=== PATIENT | female | born 1975 | race Two or more races ===

== ENCOUNTER 2019-07-09 22:23 | Emergency (ER) | payer OTHER, MEDICAID ==
[~2019-07-09] VITALS: Ht 162.6 cm; Wt 54.9 kg
--- NOTE | 2019-07-09 22:40 | NUR ---
TRISHA REPORTE A FOCAL SEIZURE EPISODE AT HOME. PT W/ HX OF RECURRENT SEIZURE EPISODE AND HAS A VNS PLACEMENT ON AND [facility]. CURRENTLY W/ L NECK SX SCAR WITH GLUE. PT VERY DROWSY BUT REPONSIVE TO VOICE. PLACED ON A MONITOR
[2019-07-09] MEDS ORDERED: LORAZEPAM INJ 2 MG/ML VIAL ONE (22:50)
[2019-07-09] MEDS ORDERED: ONDANSETRON HCL/PF 4 MG/2 ML VIAL ONE (22:51)
[2019-07-09] MEDS ORDERED: LORAZEPAM INJ 2 MG/ML VIAL IVP ONE (23:00)
[2019-07-09] MEDS ORDERED: IV NS 0.9% 1,000 ML BAG IV ONE (23:00)
[2019-07-09 23:01] LABS: BASOPHILS % (AUTO) 0.6 % (0.0-2.0); EOSINOPHILS % (AUTO) 0.8 % (0.0-6.0); HEMATOCRIT 35 % (33-45); HEMOGLOBIN 11.7 g/dL (11.5-14.8); LYMPHOCYTES % (AUTO) 41.6 % (20.0-44.0); MEAN CORPUSCULAR HGB CONC 33 g/dl (31.0-36.0); MEAN CORPUSCULAR VOLUME 92 fL (82-100); MONOCYTES # (AUTO) 0.5 /CMM (0.1-1.30); MONOCYTES % (AUTO) 9.8 % (2.0-12.0); NEUTROPHILS # (AUTO) 2.3 /CMM (1.8-8.9); NEUTROPHILS % (AUTO) 47.2 % (43.0-81.0); PLATELET COUNT (AUTO) 141 /CMM (150-450); RED BLOOD CELL COUNT(AUTO) 3.81 MIL/uL (4.0-5.2); WHITE BLOOD COUNT (AUTO) 4.8 K/uL (4.3-11.0)
--- NOTE | 2019-07-09 23:05 | NUR ---
PT CAME IN W/ LAC 18 PIV. END TIME FOR NS: [id number]
[2019-07-09 23:38] LABS: VALPROIC ACID 70 ug/mL (50-100)
[2019-07-09 23:40] LABS: PHENYTOIN (DILANTIN) < 0.5 ug/ml (10.0-20.0)
--- NOTE | 2019-07-10 00:02 | NUR ---
PT REFUSED STRAIGHT CATH FOR URINE COLLECTION. PROVIDED W/ A BED RAGLAND. SONS AT THE BED SIDE. WILL F/U
--- NOTE | 2019-07-10 01:04 | NUR ---
PT AND THE SON AT THE BED SIDE REFUSED STRAIGHT CATH FOR URINE COLLECTION AGAIN. MADE AWARE,
--- NOTE | 2019-07-10 03:25 | NUR ---
AT THE BED SIDE
[2019-07-10 03:46] LABS: CALCIUM, SERUM 8.1 mg/dL (8.5-10.1); CARBON DIOXIDE 23 mmol/L (21-32); CHLORIDE 105 mmol/L (98-107); CREATININE 1.1 mg/dL (0.6-1.3); GLUCOSE 166 mg/dL (74-106); POTASSIUM 3.6 mmol/L (3.5-5.1); SODIUM SERUM 141 mmol/L (136-145); UREA NITROGEN, BLOOD 19 mg/dL (7-18)
[2019-07-10 03:51] LABS: ALANINE AMINOTRANSFERASE 16 U/L (12-78); ALBUMIN 3.3 g/dL (3.4-5.0); ALKALINE PHOSPHATASE 72 U/L (46-116); ASPARTATE AMINOTRANSFERASE 9 U/L (15-37); BILIRUBIN,DIRECT 0.1 mg/dL (0.0-0.2); BILIRUBIN,TOTAL 0.2 mg/dL (0.2-1.0); TOTAL PROTEIN, SERUM 6.9 g/dL (6.4-8.2)
--- NOTE | 2019-07-10 04:15 | NUR ---
Patient is resting comfortably in bed with eyes closed. Easily aroused. VSS. son at the bed side.
--- NOTE | 2019-07-10 05:22 | NUR ---
dr. abrams on the phone w/ dr. heller
--- NOTE | 2019-07-10 05:35 | NUR ---
DR OLMSTEAD REQUESTING PATIENT BE TRANSFERRED TO [facility]. AIR SUPPORT CONTROL OFFICER CALLED AND REQUESTED TRANFER. AIR SUPPORT CONTROL OFFICER MAY STATING THAT TRANSFER WILL TAKE SOME TIME. MD MONTOYA
[2019-07-10] MEDS ORDERED: IV NS 0.9% 500 ML BAG IV ONE (07:00)
--- NOTE | 2019-07-10 08:53 | NUR ---
PATIENT RESTING IN NO DISTRESS.
--- NOTE | 2019-07-10 09:32 | NUR ---
[employer] CALLED CM AND WAS UNABLE TO LEAVE ANY MESSAGES BECAUSE THE VOICEMAIL BOX WAS FULL.
--- NOTE | 2019-07-10 10:52 | NUR ---
OSBALDO STOUT CALLED TO SEE WHERE THE TRANSFER PROCESS WAS FOR THIS PT. SHE INFORMD ME THAT SHE WOULD BE ON THE CASE TO MOVE THE PT. [phone]
--- NOTE | 2019-07-10 12:00 | NUR ---
PATIENT A/OX3, BREATHING EVEN AND UNLABORED, NO SOB NOTED, NEEDS ATTENDED. VITALS STABLE.
--- NOTE | 2019-07-10 12:37 | NUR ---
[facility]SFER C[facility] CALL[facility] NUMBER FOR REPORT IS .
--- NOTE | 2019-07-10 13:10 | NUR ---
AMBULANCE ETA IS 1600 TO [facility].
--- NOTE | 2019-07-10 13:11 | NUR ---
REPORT GIVEN TO RAY BECERRA FOR RM 650
--- NOTE | 2019-07-10 13:36 | NUR ---
OSBALDO HUFFMAN [phone] CONTACT NUMBER
--- NOTE | 2019-07-10 16:05 | NUR ---
REPORT GIVEN TO SENIOR CYTOGENETIC TECHNOLOGIST. PATIENT A/OX4, GIVEN MEAL TRAY AND TOLERATED WELL. BREATHING EVEN AND UNLABORED, NOS OB NOTED. TRANSFERRED TO [facility].
[2019-07-10 16:06] VITALS: BP 106/68
== END 2019-07-10 16:09 | disposition short-term general hospital (02) ==
LOC: ER 22:30
DX: G40.801 Other epilepsy, not intractable, with status epilepticus (principal); R11.2 Nausea with vomiting, unspecified; Z96.9 Presence of functional implant, unspecified; Z98.890 Other specified postprocedural states
CPT/HCPCS: 36415; 70450; 80048; 80076; 80164; 80185; 84703; 85025; 96361; 96374; 99285; J2060; J2405; J7030; J7040

== ENCOUNTER 2021-09-08 04:30 | Emergency (ER) | payer OTHER, MEDICAID ==
[~2021-09-08] VITALS: Ht 165.1 cm; Wt 68.0 kg
[2021-09-08] MEDS ORDERED: ONDANSETRON HCL/PF 4 MG/2 ML VIAL ONE (04:50)
[2021-09-08] MEDS ORDERED: HALOPERIDOL LACTATE INJ 5 MG/ML VIAL ONE (04:50)
[2021-09-08] MEDS ORDERED: IBUP-1957 PO (04:52)
[2021-09-08] MEDS ORDERED: ONDA4TAB11 PO (04:52)
[2021-09-08] MEDS ORDERED: CYCL5TAB PO (04:52)
[2021-09-08] MEDS ORDERED: CLIN300C12 PO (04:52)
--- NOTE | 2021-09-08 04:55 | NUR ---
PATIENT BIBRA 102 FROM HOME C/O VOMITING. PT Hx OF SEIZURE, STARTED NEW MEDS. PATIENT IS A/O TO TOUCH/PAIN. PATIENT RR EVEN UNLABORED. PATIENT CONNECTED TO WHITING MACHINE OPERATOR AND POX.
[2021-09-08] MEDS ORDERED: ONDANSETRON HCL/PF - ER 4 MG/2 ML VIAL IV ONE (05:00)
[2021-09-08] MEDS ORDERED: HALOPERIDOL LACTATE INJ 5 MG/ML VIAL IV ONE (05:00)
--- NOTE | 2021-09-08 05:05 | NUR ---
URINE COLLECTED AND SENT TO LAB
[2021-09-08] MEDS ORDERED: OXCA300T15 PO (05:12)
[2021-09-08] MEDS ORDERED: ZONI25CA PO (05:12)
[2021-09-08] MEDS ORDERED: DIVA-78 PO (05:12)
[2021-09-08] MEDS ORDERED: LAMO100T2 PO (05:12)
--- NOTE | 2021-09-08 05:19 | NUR ---
PT BEING TRANSPORTED TO [place]
--- NOTE | 2021-09-08 05:27 | NUR ---
PT RETURNED FROM [place]
--- NOTE | 2021-09-08 05:31 | NUR ---
COVID TEST SWABBED AND SENT TO LAB
[2021-09-08 05:34] LABS: BASOPHILS # (AUTO) 0.1 K/uL (0.0-0.2); BASOPHILS % (AUTO) 0.7 % (0.0-2.0); EOSINOPHILS % (AUTO) 0.8 % (0.0-6.0); HEMATOCRIT 38 % (33-45); HEMOGLOBIN 12.6 g/dL (11.5-14.8); LYMPHOCYTES # (AUTO) 2.2 K/uL (0.8-4.8); LYMPHOCYTES % (AUTO) 30.1 % (20.0-44.0); MEAN CORPUSCULAR HGB CONC 33 g/dl (31.0-36.0); MEAN CORPUSCULAR VOLUME 93 fL (82-100); MONOCYTES # (AUTO) 0.5 K/uL (0.1-1.30); MONOCYTES % (AUTO) 6.7 % (2.0-12.0); NEUTROPHILS # (AUTO) 4.6 K/uL (1.8-8.9); NEUTROPHILS % (AUTO) 61.7 % (43.0-81.0); PLATELET COUNT (AUTO) 141 K/uL (150-450); RED BLOOD CELL COUNT(AUTO) 4.08 MIL/uL (4.0-5.2); WHITE BLOOD COUNT (AUTO) 7.4 K/uL (4.3-11.0)
[2021-09-08 05:53] LABS: ALANINE AMINOTRANSFERASE 14 U/L (12-78); ALBUMIN 3.3 g/dL (3.4-5.0); ALCOHOL, BLOOD < 3 mg/dL (0-0); ALKALINE PHOSPHATASE 73 U/L (46-116); ASPARTATE AMINOTRANSFERASE 9 U/L (15-37); BILIRUBIN,DIRECT 0.1 mg/dL (0.0-0.2); BILIRUBIN,TOTAL 0.2 mg/dL (0.2-1.0); CALCIUM, SERUM 8.3 mg/dL (8.5-10.1); CARBON DIOXIDE 20 mmol/L (21-32); CHLORIDE 103 mmol/L (98-107); CREATININE 0.8 mg/dL (0.6-1.3); GLUCOSE 190 mg/dL (74-106); POTASSIUM 3.4 mmol/L (3.5-5.1); SODIUM SERUM 136 mmol/L (136-145); TOTAL PROTEIN, SERUM 6.8 g/dL (6.4-8.2); UREA NITROGEN, BLOOD 15 mg/dL (7-18)
[2021-09-08] MEDS ORDERED: LORAZEPAM INJ 2 MG/ML VIAL ONE (05:55)
[2021-09-08] MEDS ORDERED: LORAZEPAM INJ 2 MG/ML VIAL IV ONE (06:00)
[2021-09-08 06:44] LABS: SERUM AMMONIA 50 umol/L (11-32)
[2021-09-08 06:53] LABS: VALPROIC ACID 68 ug/mL (50-100)
[2021-09-08] MEDS ORDERED: INSU100V11 SQ (07:39)
[2021-09-08] MEDS ORDERED: ZONI100C31 PO (07:39)
[2021-09-08] MEDS ORDERED: ATOR10TA PO (07:40)
--- NOTE | 2021-09-08 08:43 | NUR ---
VIRIDIANA [facility] [phone]
--- NOTE | 2021-09-08 08:44 | NUR ---
CALLED LAB TO FOLLOW UP COVID RESULTS, PER DAHIANA, SPECIMEN WAS JUST PICKED UP 15MINS AGO.
--- NOTE | 2021-09-08 13:53 | NUR ---
FAXED COVID RESULT TO [phone]
[2021-09-08 13:58] LABS: LIPASE 62 U/L (73-393)
--- NOTE | 2021-09-08 14:59 | NUR ---
PATIENT SIGNED AMA, HER AND HER SON CYRIL WERE TOLD THE RISKS OF SIGNING AGAINST MEDICAL ADVICE AND UNDERSTOOD.
--- NOTE | 2021-09-08 15:58 | NUR ---
PT SON ARRIVED TO [employer] ARCHITECT PATIENT. IV removed. Catheter intact and site benign. Pressure and 4x4 applied to site. No bleeding noted.
[2021-09-08 16:20] VITALS: BP 107/68
== END 2021-09-08 16:20 | disposition home or self-care (01) ==
LOC: ER 04:35
DX: R41.82 Altered mental status, unspecified (principal); G40.909 Epilepsy, unspecified, not intractable, without status epilepticus; E11.9 Type 2 diabetes mellitus without complications; Z96.41 Presence of insulin pump (external) (internal); R51.9 Headache, unspecified; R11.2 Nausea with vomiting, unspecified; Z20.822 Contact with and (suspected) exposure to COVID-19; Z97.8 Presence of other specified devices; R94.31 Abnormal electrocardiogram [ECG] [EKG]; Z79.4 Long term (current) use of insulin
CPT/HCPCS: 36415; 70450; 80048; 80076; 80164; 80307; 80320; 82140; 83690; 84484; 85025; 85730; 87426; 93005; 96374; 96375; 99291; C9803; J1630; J2060; J2405 ×2; G0480